=== PATIENT | female | born 1940 | race Caucasian/White ===

== ENCOUNTER 2017-04-10 10:03 | Emergency (ER) | payer MEDICARE ==
[2017-04-10 10:21] VITALS: BP 174/71
--- NOTE | 2017-04-10 11:17 | UC ---
Lower Extremity/Ankle HPI - HPI Summary HPI Summary: 2 DAYS OF WORSENING PAIN AND REDNESS LEFT GREAT TOE. REPORTS A H/O GOUT AND THIS FEELS THE SAME. DENIES ANY TRAUMA OR INJURY. STATES SHE GETS GOUTY ATTACKS EVERY 4-6 MONTHS. IS NOT ON DAILY PROPHYLACTIC TREATMENT. - History of Current Complaint Chief Complaint: UCLowerExtremity Stated Complaint: SWOLLEN FOOT AND TOE Time Seen by Provider: 04/10/17 10:26 Hx Obtained From: Patient Onset/Duration: Gradual Onset, Lasting Days, Still Present Severity Initially: Mild Severity Currently: Moderate Pain Intensity: 10 - 10/10 WHEN TOUCHED Pain Scale Used: 0-10 Numeric Aggravating Factor(s): Standing, Ambulation Alleviating Factor(s): Rest Able to Bear Weight: Yes - WITH PAIN - Allergies/Home Medications Allergies/Adverse Reactions: Allergies Allergy/AdvReac Type Severity Reaction Status Date / Time gluten Allergy Severe Diarrhea Verified 04/10/17 10:24 PMH/Surg Hx/FS Hx/Imm Hx - Additional Past Medical History Additional PMH: GOUT Endocrine History: Hypothyroidism Cardiovascular History: Hypertension Other GI/ History: CELIAC - Surgical History Surgical History: Yes Surgery Procedure, Year, and Place: [facility] 1996 - Family History Known Family History: Positive: Hypertension - Social History Alcohol Use: None Substance Use Type: None Smoking Status (MU): Never Smoked Tobacco Review of Systems Constitutional: Negative Skin: Other - ERYTHEMA Respiratory: Negative Cardiovascular: Negative Gastrointestinal: Negative Musculoskeletal: Arthralgia, Decreased ROM, Edema All Other Systems Reviewed And Are Negative: Yes Physical Exam Triage Information Reviewed: Yes Appearance: Well-Appearing, No Pain Distress, Well-Nourished Vital Signs: Initial Vital Signs Temp 97.7 F 04/10/17 10:14 Pulse 76 04/10/17 10:14 Resp 18 04/10/17 10:14 BP 174/71 04/10/17 10:14 Pulse Ox 99 04/10/17 10:14 Vital Signs Reviewed: Yes Eyes: Positive: Conjunctiva Clear ENT: Positive: Hearing grossly normal Neck: Positive: Supple Respiratory: Positive: No respiratory distress, No accessory muscle use Cardiovascular: Positive: Pulses Normal Abdomen Description: Positive: Soft Musculoskeletal: Positive: ROM Limited @ - LEFT GREAT TOE, Edema @ - LEFT GREAT TOE, Other: - LEFT GREAT TOE EXQUISITELY TTP MCP JOINT WIOTH ERYTHEMA AND EDEMA Neurological: Positive: Alert Psychological: Positive: Age Appropriate Behavior Skin: Negative: breakdown Lower Extremity Course/Dx - Course Course Of Treatment: DISCUSSED POSSIBLE CAUSES OF LEFT GREAT TOE PAIN AND SWELLING INCLUDING ARTHRITIS, INFECTION AND TRAUMA/FRACTURE. PT DECLINES XRAY TODAY. STATES SHE HAS GOUTY FLARES EVERY 4 MONTHS OR SO AND THIS FEELS THE SAME. DENIES ANY TRAUMA. HAS NEVER BEEN OFFICIALLY WORKED UP FOR GOUT AND IS NOT ON ANY PROPHYLACTIC TREATMENT. ADVISED TO SEE PCP FOR THIS ONCE SHE IS SX FREE. - Differential Dx/Diagnosis Provider Diagnoses: GOUT - LEFT GREAT TOE Discharge - Discharge Plan Condition: Stable Disposition: HOME Prescriptions: Indomethacin CAP* [Indocin CAP*] 50 mg PO TID #15 cap Patient Education Materials: Low Purine Diet (ED), Gout (ED) Referrals: Jose RANDOLPH,Hoang Clark [Primary Care Provider] - 2 Weeks Additional Instructions: YOUR SYMPTOMS ARE CERTAINLY CONSISTENT WITH GOUT. WILL TREAT WITH INDOMETHACIN 3 TIMES A DAY FOR 5 DAYS. NO OTC NSAIDS (IBUPROFEN.NAPROXEN) WHILE TAKING THIS MED. GIVEN THE FREQUENCY OF YOUR EPISODES I WOULD RECOMMEND A WORK-UP TO DEFINITIVELY DIAGNOSE THIS CONDITION. ONCE YOU HAVE BEEN SYMPTOM FREE FOR AT LEAST 2 WEEKS FOLLOW-UP WITH YOUR PCP TO DISCUSS EVALUATION FOR GOUT, AND IF INDICATED DAILY PROPHYLACTIC MEDICATION TO PREVENT RECURRENT FLARES. IF YOU FEEL THE BEGINNINGS OF A FLARE IN THE FUTURE YOU CAN TRY TO PREVENT IT BY TAKING OTC NSAIDS - ALEVE (NAPROXEN): 440MG (2 TABS) EVERY 12 HRS
== END 2017-04-10 11:28 | disposition home or self-care (01) ==
LOC: UCEAST 10:03
DX: M10.9 Gout, unspecified (principal); E03.9 Hypothyroidism, unspecified; I10 Essential (primary) hypertension; K90.0 Celiac disease
CPT/HCPCS: 99212; G0463

== ENCOUNTER 2017-06-24 09:58 | Emergency (ER) | payer MEDICARE ==
[2017-06-24] MEDS ORDERED: Indomethacin CAP* 25 MG CAP PO ONE (11:03)
--- NOTE | 2017-06-24 11:41 | RAD ---
INDICATION: Pain and erythema at the right great toe and distal foot COMPARISON: None. TECHNIQUE: 3 views of the right foot were obtained. FINDINGS: The adequately corticated bones are properly aligned. Joint spaces appear maintained. No fracture, dislocation or focal bony abnormality is seen. Calcification is noted overlying the distal right anterior tibial artery. IMPRESSION: 1. NO RADIOGRAPHIC EVIDENCE OF OSTEOMYELITIS. 2. CALCIFICATION IS NOTED OVERLYING THE DISTAL RIGHT ANTERIOR TIBIAL ARTERY. PLEASE CORRESPOND TO THE PATIENT'S VASCULAR EXAM. IF CLINICALLY WARRANTED FURTHER CHARACTERIZATION COULD BE MADE WITH ARTERIAL DUPLEX ULTRASOUND OR BERNADETTE. If the patient's symptoms persist, follow-up imaging is recommended.
--- NOTE | 2017-06-24 11:51 | UC ---
Lower Extremity/Ankle HPI - HPI Summary HPI Summary: RIGHT GREAT TOE PAIN, REDNESS AND SWELLING. HAS H/O GOUTY ATTACKS EVERY FEW MONTHS. SX CAN BE IN EITHER RIGHT OR LEFT GREAT TOES. WAS HERE 3 MONTHS AGO WITH SAME COMPLAINT IN LEFT GREAT TOE. SX RESOLVED WITH INDOCIN. FOLLOWED-UP WITH PCP AND PUT ON ULORIC BUT DEVELOPED ADVERSE REACTION AFTER 11 DAYS. STATES SHE IS ALSO ALLERGIC TO ALLOPURINOL. SHE DENIES ANY TRAUMA TO THE FOOT. ALSO HAD ONSET OF SHARP RLQ PAIN YESTERDAY. NO URINARY SX. NO FEVER, N/V/D. LAST BM YESTERDAY NORMAL. - History of Current Complaint Chief Complaint: UCLowerExtremity Stated Complaint: FOOT PAIN AND SIDE PAIN Time Seen by Provider: 06/24/17 10:34 Hx Obtained From: Patient Onset/Duration: Gradual Onset, Lasting Days, Still Present Severity Initially: Moderate Severity Currently: Moderate Pain Intensity: 5 Pain Scale Used: 0-10 Numeric Aggravating Factor(s): Standing, Ambulation Alleviating Factor(s): Rest Able to Bear Weight: Yes - Allergies/Home Medications Allergies/Adverse Reactions: Allergies Allergy/AdvReac Type Severity Reaction Status Date / Time gluten Allergy Severe Diarrhea Verified 06/24/17 10:11 PMH/Surg Hx/FS Hx/Imm Hx - Additional Past Medical History Additional PMH: CELIAC, GOUT Endocrine History: Hypothyroidism Cardiovascular History: Hypertension - Surgical History Surgical History: Yes Surgery Procedure, Year, and Place: [facility] - Family History Known Family History: Positive: Hypertension - Social History Alcohol Use: None Substance Use Type: None Smoking Status (MU): Never Smoked Tobacco Review of Systems Constitutional: Negative Skin: Other - ERYTHEMA RIGHT FOOT Respiratory: Negative Cardiovascular: Negative Gastrointestinal: Abdominal Pain Genitourinary: Negative Musculoskeletal: Arthralgia, Decreased ROM, Edema All Other Systems Reviewed And Are Negative: Yes Physical Exam Triage Information Reviewed: Yes Appearance: Well-Appearing, No Pain Distress, Well-Nourished Vital Signs: Initial Vital Signs Temp 98.8 F 06/24/17 10:07 Pulse 109 06/24/17 10:07 Resp 18 06/24/17 10:07 BP 154/83 06/24/17 10:07 Pulse Ox 97 06/24/17 10:07 Vital Signs Reviewed: Yes Eyes: Positive: Conjunctiva Clear ENT: Positive: Hearing grossly normal, Pharynx normal, TMs normal Neck: Positive: Supple Respiratory: Positive: No respiratory distress, No accessory muscle use Cardiovascular: Positive: Pulses Normal Abdomen Description: Positive: Soft, Other: - TTP DIFFUSELT. WORST RLQ. NO REBOUND OR RIGIDITY. Negative: CVA Tenderness (R), CVA Tenderness (L) Bowel Sounds: Positive: Present Musculoskeletal: Positive: ROM Limited @ - RIGHT GREAT TOE, Edema @ - RIGHT FOOT /RIGHT GREAT TOE, Other: - TTP RIGHT GREAT TOE/MTP JOINT Neurological: Positive: Alert Psychological: Positive: Age Appropriate Behavior Skin: Positive: Other - RIGHT DISTAL FOOT/GREAT TOE ERYTHEMA Diagnostics - Radiology RIGHT FOOT XRAY Xray Interpretation: No Acute Changes Radiology Interpretation Completed By: Radiologist CT ABD/PELVIS W/O CONTRAST Xray Interpretation: Positive (See Comments) - 1.There is mild perienteric inflammatory change at the terminal ileum most suspicious for acute diverticulitis of the ileum. Negative for perienteric abscess or resulting bowel obstruction. 2. The appendix is not discretely visualized limiting assessment. 3. Negative for obstructive uropathy. 4. Probable reactive subcentimeter RIGHT lower quadrant mesenteric lymph node. Radiology Interpretation Completed By: Radiologist Lower Extremity Course/Dx - Differential Dx/Diagnosis Provider Diagnoses: 1. ACUTE DIVERTICULITIS. 2. GOUT RIGHT GREAT TOE Discharge - Sign-Out/Discharge Documenting (check all that apply): Discharge/Admit/Transfer - Discharge Plan Condition: Stable Disposition: HOME Prescriptions: Ciprofloxacin TAB* [Cipro 500 MG TAB*] 500 mg PO BID #20 tab Indomethacin CAP* [Indocin CAP*] 50 mg PO TID #14 cap metroNIDAZOLE [Flagyl 500 MG TAB] 500 mg PO TID #30 tab Patient Education Materials: Diverticulitis (ED), Low Purine Diet (ED), Gout ( ED), Diverticulitis Diet (ED) Referrals: Jose RANDOLPH,Hoang Clark [Primary Care Provider] - If Needed Additional Instructions: CT SCAN SUGGESTIVE OF DIVERTICULITIS. WILL TREAT WITH METRONIDAZOLE AND CIPRO FOR 10 DAYS. WATCH DIET. KEEP PCP FOLLOW-UP APPOINTMENT IN 6 DAYS. GO TO THE ER WITHOUT FAIL IF SYMPTOMS WORSEN. FOOT X-RAY UNREMARKABLE FOR FRACTURE OR DISLOCATION. THERE IS SOME ARTERIAL CALCIFICATION. BE SURE TO FOLLOW THIS WITH YOUR PRIMARY CARE PROVIDER. WILL TREAT YOU TODAY FOR GOUT. STAY WELL HYDRATED. - Billing Disposition and Condition Condition: STABLE Disposition: HOME
--- NOTE | 2017-06-24 12:36 | RAD ---
INDICATION: RIGHT lower quadrant abdominal pain since last evening. Post cholecystectomy. COMPARISON: No relevant prior exams available on the [facility] PACS for comparison. TECHNIQUE: Multidetector CT images were obtained from the lung bases to the ischial tuberosities. Evaluation of the viscera is limited without IV contrast. Multiplanar reformation. REPORT: Cardiomegaly and mild subsegmental atelectasis as well as RIGHT basilar bronchiectasis at the visualized inferior thorax. Post cholecystectomy. Negative for biliary dilatation. No focal hepatic lesions evident. Partial fatty replacement of the pancreas. Unremarkable spleen. Negative for CT abnormality of the upper GI. There is mild perienteric inflammatory change at the terminal ileum most suspicious for acute diverticulitis of the ileum. The appendix is not discretely visualized limiting assessment. Negative for extra enteric gas or ascites. Severe diverticulosis of the colon without findings of colonic diverticulosis. Normal adrenal glands. Negative for urolithiasis or hydronephrosis. The kidneys are mildly atrophic. Unremarkable uterus and adnexal regions. 0.9 cm short axis RIGHT lower quadrant mesenteric lymph node. Normal diameter abdominal aorta and iliac arteries with mild calcific plaque. Partially decompressed inferior vena cava consistent with lower volume state. Negative for retroperitoneal hematoma. Dextroscoliosis of the lower thoracic and lumbar spine. 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 No acute fracture or suspicious focal osseous lesion evident. IMPRESSION: 1.There is mild perienteric inflammatory change at the terminal ileum most suspicious for acute diverticulitis of the ileum. Negative for perienteric abscess or resulting bowel obstruction. 2. The appendix is not discretely visualized limiting assessment. 3. Negative for obstructive uropathy. 4. Probable reactive subcentimeter RIGHT lower quadrant mesenteric lymph node.
[2017-06-24 12:43] VITALS: BP 170/100
== END 2017-06-24 13:07 | disposition home or self-care (01) ==
LOC: UCEAST 09:58
DX: M10.071 Idiopathic gout, right ankle and foot (principal); K57.10 Diverticulosis of small intestine without perforation or abscess without bleeding; E03.9 Hypothyroidism, unspecified; I10 Essential (primary) hypertension; Z90.49 Acquired absence of other specified parts of digestive tract
CPT/HCPCS: 74176; 81003; 99212; A9270-GY; G0463

== ENCOUNTER 2020-08-01 02:32 | Inpatient (IN) ==
[2020-08-01] MEDS ORDERED: NS 0.9% 1000 ml BAG 1,000 ML IV ONE ×2 (02:42→05:26)
[2020-08-01 03:30] LABS: ABS Eosinophils 0.1 10^3/ul (0-0.6); ABS Lymphocytes 1.6 10^3/ul (1.0-4.8); ABS Monocytes 0.9 10^3/ul (0-0.8); ABS Neutrophils 7.5 10^3/ul (1.5-7.7); Eosinophil % 0.8 %; Hematocrit 43 % (35-47); Hemoglobin 14.3 g/dL (12.0-16.0); Lymphocyte % 15.7 %; Mean Corpuscular HGB Conc 33 g/dL (31-36); Mean Corpuscular Hemoglobin 31 pg (27-31); Mean Corpuscular Volume 95 fL (80-97); Platelet Count 201 10^3/uL (150-450); Red Blood Count 4.57 10^6 /uL (3.70-4.87); Red Cell Distribution Width 15 % (10-15); White Blood Count 10.1 10^3/uL (3.5-10.8)
[2020-08-01 03:39] LABS: Albumin 3.8 g/dL (3.2-5.2); Calcium 8.8 mg/dL (8.6-10.3); Potassium 3.1 mmol/L (3.5-5.0); Total Bilirubin 0.5 mg/dL (0.2-1.0)
[2020-08-01 03:45] LABS: C Reactive Protein 88.32 mg/L (<8.01); EGFR African American 39.9 (>60); Globulin 3.8 g/dL (2-4); Total Protein 7.6 g/dL (6.4-8.9)
[2020-08-01] MEDS ORDERED: Iodixanol (CONTRAST) 320 MG/ML 100 ML SDV IV ONE (04:37)
[2020-08-01] MEDS ORDERED: Piperacillin/Tazobac ADVAN 3.375 GM in NS 0.9% 100 ml BAG 100 ML IV ONE ×2 (06:16→07:53)
[2020-08-01] MEDS ORDERED: Piperacillin/Tazobac 3.375 GM BAG ONE (06:24)
[2020-08-01] MEDS: KCL 20 MEQ/100 ML IVPREMIX 20 MEQ/100 ML BAG IV SCH ×2 (07:14→12:38)
[2020-08-01] MEDS ORDERED: Magnesium Hydroxide LIQ 30 ML UDC PO PRN (07:45)
[2020-08-01] MEDS ORDERED: Al Hydrox/Mg Hydrox/Simet LIQ 30 ML UDC PO PRN (07:45)
[2020-08-01] MEDS ORDERED: NS 0.9% 1000 ml BAG 1,000 ML IV SCH (07:45)
[2020-08-01] MEDS ORDERED: Zosyn per Pharmacy NOTE FOLLOW UP SCH (08:00)
[2020-08-01] MEDS ORDERED: Cyanocobalamin INJ 1,000 MCG/ML VIAL 1 ML VIAL IM ONE (08:47)
[2020-08-01] MEDS: Nystatin TOP POWDER 15 GM BTL TOPICAL SCH ×3 (11:09→21:55)
[2020-08-01] MEDS ORDERED: Morphine 2 MG/ML SYRINGE IV PRN (12:02)
[2020-08-01] MEDS ORDERED: ZOSYN 3.375 GM IV (13:30)
[2020-08-01] MEDS ORDERED: X ONE IV (13:30)
[2020-08-01] MEDS: Heparin 5000 UNITS/ML 1 mL VIAL SUBCUT SCH ×2 (15:10→21:55)
[2020-08-02] MEDS: ZOSYN 3.375 GM Q8H per EXTENDED INFUSION IV SCH ×4 (00:17→23:07)
[2020-08-02] MEDS: Heparin 5000 UNITS/ML 1 mL VIAL SUBCUT SCH ×3 (05:14→20:15)
[2020-08-02 05:53] LABS: ABS Eosinophils 0.2 10^3/ul (0-0.6); ABS Lymphocytes 1.4 10^3/ul (1.0-4.8); ABS Monocytes 0.4 10^3/ul (0-0.8); ABS Neutrophils 3.3 10^3/ul (1.5-7.7); Eosinophil % 3.2 %; Hematocrit 36 % (35-47); Hemoglobin 11.8 g/dL (12.0-16.0); Lymphocyte % 26.1 %; Mean Corpuscular HGB Conc 33 g/dL (31-36); Mean Corpuscular Hemoglobin 31 pg (27-31); Mean Corpuscular Volume 95 fL (80-97); Mean Platelet Volume 10.6 fL (7.4-10.4); Platelet Count 172 10^3/uL (150-450); Red Blood Count 3.82 10^6 /uL (3.70-4.87); Red Cell Distribution Width 15 % (10-15); White Blood Count 5.3 10^3/uL (3.5-10.8)
[2020-08-02 06:08] LABS: C Reactive Protein 70.03 mg/L (<8.01)
[2020-08-02] MEDS: Nystatin TOP POWDER 15 GM BTL TOPICAL SCH ×3 (07:40→20:15)
[2020-08-02 08:43] LABS: Calcium 7.3 mg/dL (8.6-10.3); EGFR African American 83.1 (>60); EGFR Non-African American 68.7 (>60); Potassium 3.2 mmol/L (3.5-5.0)
[2020-08-02] MEDS ORDERED: Potassium Chlor 20 meq TAB.ER PO SCH (09:00)
[2020-08-02 09:21] LABS: Magnesium 1.2 mg/dL (1.9-2.7)
[2020-08-02] MEDS ORDERED: Magnesium Sulf 4 GM/100 ML IV 4,000 MG/100 ML BAG IVPB ONE (10:00)
[2020-08-02] MEDS: Potassium Chloride LIQUID 20 MEQ/15 ML LIQUID PO SCH ×2 (11:35→12:59)
[2020-08-03] MEDS: Heparin 5000 UNITS/ML 1 mL VIAL SUBCUT SCH (06:33)
[2020-08-03 07:20] LABS: ABS Eosinophils 0.3 10^3/ul (0-0.6); ABS Lymphocytes 1.1 10^3/ul (1.0-4.8); ABS Monocytes 0.5 10^3/ul (0-0.8); ABS Neutrophils 3.8 10^3/ul (1.5-7.7); Eosinophil % 5.6 %; Hematocrit 34 % (35-47); Hemoglobin 11.4 g/dL (12.0-16.0); Lymphocyte % 19.6 %; Mean Corpuscular HGB Conc 34 g/dL (31-36); Mean Corpuscular Hemoglobin 32 pg (27-31); Mean Corpuscular Volume 94 fL (80-97); Nucleated Red Blood Cells % 0.1; Platelet Count 180 10^3/uL (150-450); Red Blood Count 3.58 10^6 /uL (3.70-4.87); Red Cell Distribution Width 14 % (10-15); White Blood Count 5.8 10^3/uL (3.5-10.8)
[2020-08-03 07:32] LABS: Magnesium 1.7 mg/dL (1.9-2.7); Potassium 3.9 mmol/L (3.5-5.0)
[2020-08-03 07:37] LABS: C Reactive Protein 64.07 mg/L (<8.01); EGFR Non-African American 84.3 (>60)
[2020-08-03] MEDS ORDERED: Magnesium Sulfate 2 gm BAG 2 GM/50 ML BAG IVPB ONE (08:40)
[2020-08-03 08:41] VITALS: BP 141/56
[2020-08-03] MEDS: ZOSYN 3.375 GM Q8H per EXTENDED INFUSION IV SCH ×2 (08:54→09:05)
[2020-08-03] MEDS: Nystatin TOP POWDER 15 GM BTL TOPICAL SCH (10:57)
== END 2020-08-03 11:50 | disposition home or self-care (01) | DRG 394 ==
LOC: ED 02:32 → MED 17:34
PROVIDERS: ADMIT Internal Medicine; ATTEND Internal Medicine

== ENCOUNTER 2023-09-03 16:35 | Inpatient (IN) ==
[2023-09-03] MEDS: Ondansetron 4 mg VIAL 2 MG/ML 2 ml VIAL IV ONE (18:04)
[2023-09-03] MEDS: Morphine 4 MG/ML VIAL (1 ml) IV ONE (18:08)
[2023-09-03 18:23] LABS: ABS Lymphocytes 1.3 10^3/uL (1.0-4.8); ABS Monocytes 0.6 10^3/uL (0.0-0.9); ABS Neutrophils 8.8 10^3/uL (1.5-7.6); Eosinophil % 0.2 %; Hematocrit 37.6 % (35-45); Hemoglobin 12.5 g/dL (11.5-14.3); Lymphocyte % 12.3 %; Mean Corpuscular Hemoglobin 31.4 pg (27-33); Mean Corpuscular Hgb Conc 33.3 g/dL (31-36); Mean Corpuscular Volume 94.2 fL (80-97); Mean Platelet Volume 10.6 fL (7.5-11.2); Platelet Count 169 10^3/uL (150-450); Red Blood Count 3.99 10^6/uL (3.63-4.92); White Blood Count 10.8 10^3/uL (3.8-11.8)
[2023-09-03] MEDS: Lactated Ringers 1000 ml BAG 1,000 ML IV ONE (18:28)
[2023-09-03 19:08] LABS: Albumin 4.3 g/dL (3.2-5.2); Albumin/Globulin Ratio 1.2 (1-3); Calcium 9.5 mg/dL (8.6-10.3); Creatinine, Serum 0.77 mg/dL (0.51-0.95); Globulin 3.6 g/dL (2-4); Potassium 4.4 mmol/L (3.5-5.0); Total Bilirubin 0.5 mg/dL (0.2-1.0); Total Protein 7.9 g/dL (6.4-8.9); eGFR CKD-EPI 75.5 (>60)
[2023-09-03] MEDS: Morphine 4 MG/ML VIAL (1 ml) IV PRN (19:42)
[2023-09-03] MEDS ORDERED: Ondansetron 4 mg VIAL 2 MG/ML 2 ml VIAL IV PRN (21:49)
[2023-09-03] MEDS: Heparin 5000 UNITS/ML 1 mL VIAL SUBCUT SCH (22:16)
[2023-09-04] MEDS: Morphine 2 MG/ML SYRINGE IV PRN (03:48)
[2023-09-04 06:36] LABS: Hematocrit 34.8 % (35-45); Hemoglobin 11.4 g/dL (11.5-14.3); Mean Corpuscular Hemoglobin 30.7 pg (27-33); Mean Corpuscular Hgb Conc 32.6 g/dL (31-36); Mean Corpuscular Volume 94.2 fL (80-97); Mean Platelet Volume 10.6 fL (7.5-11.2); Platelet Count 150 10^3/uL (150-450); Red Cell Distribution Width 14.9 % (12-17); White Blood Count 8.6 10^3/uL (3.8-11.8)
[2023-09-04 06:45] LABS: INR 0.95 (0.83-1.13)
[2023-09-04] MEDS: Sulfur Hexaflouride MICROSPHR 25 MG VIAL IV ONE (09:03)
[2023-09-05] MEDS ORDERED: Propofol 10 MG/ML 20 ML BTL ONE (07:34)
[2023-09-05] MEDS ORDERED: Lidocaine 2% PF 5 ML VIAL ONE (07:34)
[2023-09-05] MEDS ORDERED: fentaNYL 100 mcg/2 ml 50 MCG/ML VIAL ONE ×2 (07:34→11:39)
[2023-09-05] MEDS ORDERED: Rocuronium 50 mg VIAL 10 mg/ml 5 ml VIAL (50 mg) ONE (07:35)
[2023-09-05] MEDS ORDERED: Vancomycin 1,000 MG VIAL ONE (07:44)
[2023-09-05] MEDS ORDERED: fentaNYL 100 mcg/2 ml 50 MCG/ML VIAL IV PRN (08:48)
[2023-09-05] MEDS ORDERED: Naloxone 0.4 mg VIAL 0.4 mg/ml 1 ml VIAL IV PRN (08:48)
[2023-09-05] MEDS ORDERED: HYDROmorphone 1 MG/1 ML SYRINGE IV PRN (08:48)
[2023-09-05] MEDS ORDERED: Ondansetron 4 mg VIAL 2 MG/ML 2 ml VIAL IV PRN (08:48)
[2023-09-05] MEDS ORDERED: ceFAZolin 2 GM PREMIX 2 GM/50 ML BAG ONE (08:50)
[2023-09-05] MEDS ORDERED: Phenylephrine IV 10 MG/ML 1 ml VIAL ONE (10:05)
[2023-09-05] MEDS ORDERED: Dexamethasone IV 4 MG/ML VIAL 1 ml VIAL ONE (10:17)
[2023-09-05] MEDS ORDERED: Ondansetron 4 mg VIAL 2 MG/ML 2 ml VIAL ONE (10:29)
[2023-09-05] MEDS ORDERED: Acetaminophen IV 1 GM/100ML 1,000 MG/100 ML BAG IV ONE (10:33)
[2023-09-05] MEDS ORDERED: Magnesium Hydroxide LIQ 30 ML UDC PO PRN (12:55)
[2023-09-05] MEDS ORDERED: Polyethylene Glycol 3350 17 GM PACKET PO PRN (12:55)
[2023-09-05] MEDS ORDERED: Senna TAB 8.6 mg TAB PO PRN (12:55)
[2023-09-05] MEDS: Metoclopramide 5 MG/ML VIAL (10 mg) IV SLOW PU ONE (12:57)
[2023-09-05] MEDS: Lactated Ringers 1000 ml BAG 1,000 ML IV ONE (15:24)
[2023-09-05] MEDS: ceFAZolin 1 GM ADVAN 1 GM in NS 0.9% 50 ML 50 ML IVPB SCH (17:11)
[2023-09-05] MEDS: Magnesium Hydroxide LIQ 30 ML UDC PO SCH (21:32)
[2023-09-06 06:14] LABS: ABS Lymphocytes 0.7 10^3/uL (1.0-4.8); ABS Neutrophils 8.4 10^3/uL (1.5-7.6); ABS Nucleated RBC 0.01 10^3/ul; Hematocrit 30.3 % (35-45); Hemoglobin 10.2 g/dL (11.5-14.3); Lymphocyte % 6.8 %; Mean Corpuscular Hemoglobin 31.4 pg (27-33); Mean Corpuscular Hgb Conc 33.5 g/dL (31-36); Mean Corpuscular Volume 93.8 fL (80-97); Mean Platelet Volume 10.6 fL (7.5-11.2); Nucleated Red Blood Cells % 0.1 %/100WBC (0.0-0.8); Platelet Count 122 10^3/uL (150-450); Red Blood Count 3.23 10^6/uL (3.63-4.92); Red Cell Distribution Width 14.7 % (12-17); White Blood Count 10.1 10^3/uL (3.8-11.8)
[2023-09-06 06:28] LABS: Albumin 3.3 g/dL (3.2-5.2); Albumin/Globulin Ratio 1.3 (1-3); Calcium 7.8 mg/dL (8.6-10.3); Creatinine, Serum 0.77 mg/dL (0.51-0.95); Globulin 2.6 g/dL (2-4); Magnesium 2.6 mg/dL (1.9-2.7); Total Bilirubin 0.3 mg/dL (0.2-1.0); Total Protein 5.9 g/dL (6.4-8.9); eGFR CKD-EPI 75.5 (>60)
[2023-09-06] MEDS: Enoxaparin 40 MG/0.4 ML SYR SUBCUT SCH (12:06)
[2023-09-07 06:36] LABS: Hematocrit 31.4 % (35-45); Hemoglobin 10.4 g/dL (11.5-14.3); Mean Platelet Volume 11.6 fL (7.5-11.2); Platelet Count 137 10^3/uL (150-450)
[2023-09-07 06:53] LABS: Albumin 3.3 g/dL (3.2-5.2); Albumin/Globulin Ratio 1.1 (1-3); Creatinine, Serum 0.66 mg/dL (0.51-0.95); Globulin 3.1 g/dL (2-4); Potassium 5.1 mmol/L (3.5-5.0); Total Bilirubin 0.4 mg/dL (0.2-1.0); Total Protein 6.4 g/dL (6.4-8.9); eGFR CKD-EPI 85.9 (>60)
[2023-09-07] MEDS: Furosemide 20 mg/2 ml IV VIAL IV ONE (12:21)
[2023-09-07 14:42] VITALS: BP 101/42
== END 2023-09-07 15:25 | DRG 522 ==
LOC: ED 16:35 → SUATTDRO 21:49 → EDHOLD 21:49 → SSU 23:24 → UNDODISIN 09-07 14:09 → PMRU 09-07 14:40
PROVIDERS: ADMIT Hospitalist; ATTEND Hospitalist

== ENCOUNTER 2023-09-07 14:20 | Inpatient (IN) ==
[2023-09-07] MEDS ORDERED: Senna TAB 8.6 mg TAB PO PRN (14:40)
[2023-09-08 06:33] LABS: ABS Eosinophils 0.4 10^3/uL (0.0-0.5); ABS Lymphocytes 1.4 10^3/uL (1.0-4.8); ABS Monocytes 0.8 10^3/uL (0.0-0.9); ABS Neutrophils 4.8 10^3/uL (1.5-7.6); ABS Nucleated RBC 0.01 10^3/ul; Eosinophil % 5.5 %; Hematocrit 28.6 % (35-45); Hemoglobin 9.6 g/dL (11.5-14.3); Mean Corpuscular Hemoglobin 31.5 pg (27-33); Mean Corpuscular Hgb Conc 33.4 g/dL (31-36); Mean Corpuscular Volume 94.2 fL (80-97); Mean Platelet Volume 11.2 fL (7.5-11.2); Nucleated Red Blood Cells % 0.1 %/100WBC (0.0-0.8); Platelet Count 164 10^3/uL (150-450); Red Blood Count 3.03 10^6/uL (3.63-4.92); Red Cell Distribution Width 15.1 % (12-17); White Blood Count 7.4 10^3/uL (3.8-11.8)
[2023-09-08 07:30] LABS: Albumin/Globulin Ratio 1.1 (1-3); Calcium 7.6 mg/dL (8.6-10.3); Creatinine, Serum 0.69 mg/dL (0.51-0.95); Globulin 2.8 g/dL (2-4); Potassium 5.2 mmol/L (3.5-5.0); Total Bilirubin 0.5 mg/dL (0.2-1.0); Total Protein 5.8 g/dL (6.4-8.9)
[2023-09-08 09:27] LABS: Magnesium 2.7 mg/dL (1.9-2.7)
[2023-09-08] MEDS: Ondansetron ODT 4 mg TAB 4 MG TAB SL PRN (09:31)
[2023-09-08] MEDS: Lidocaine PATCH 5% PATCH TRANSDERM SCH (13:19)
[2023-09-08] MEDS: Cholecalciferol (VIT D3) 1,000 unit TAB PO SCH (13:20)
[2023-09-08] MEDS: Enoxaparin 40 MG/0.4 ML SYR SUBCUT SCH (13:23)
[2023-09-09 07:12] LABS: Hematocrit 28.9 % (35-45); Hemoglobin 9.7 g/dL (11.5-14.3); Mean Corpuscular Hemoglobin 31.4 pg (27-33); Mean Corpuscular Hgb Conc 33.5 g/dL (31-36); Mean Corpuscular Volume 93.7 fL (80-97); Mean Platelet Volume 11.2 fL (7.5-11.2); Platelet Count 188 10^3/uL (150-450); Red Blood Count 3.08 10^6/uL (3.63-4.92); Red Cell Distribution Width 15.1 % (12-17); White Blood Count 6.3 10^3/uL (3.8-11.8)
[2023-09-09 07:31] LABS: Albumin/Globulin Ratio 1.1 (1-3); Calcium 7.5 mg/dL (8.6-10.3); Creatinine, Serum 0.67 mg/dL (0.51-0.95); Globulin 2.7 g/dL (2-4); Potassium 4.9 mmol/L (3.5-5.0); Total Bilirubin 0.6 mg/dL (0.2-1.0); Total Protein 5.7 g/dL (6.4-8.9); eGFR CKD-EPI 85.6 (>60)
[2023-09-09 08:10] LABS: ABS Basophils 0.1 10^3/uL (0.0-0.1); ABS Eosinophils 0.3 10^3/uL (0.0-0.5); ABS Lymphocytes 1.9 10^3/uL (1.0-4.8); ABS Monocytes 0.7 10^3/uL (0.0-0.9); ABS Neutrophils 3.4 10^3/uL (1.5-7.6); ABS Nucleated RBC 0.04 10^3/ul; Eosinophil % 4.5 %; Lymphocyte % 29.3 %; Nucleated Red Blood Cells % 0.6 %/100WBC (0.0-0.8)
[2023-09-09] MEDS: Calcium Carb (TUMS) 500 mg CHEW TAB PO SCH (08:57)
[2023-09-09] MEDS: Cyanocobalamin INJ 1,000 MCG/ML VIAL 1 ML VIAL IM ONE (18:23)
[2023-09-11 08:20] LABS: Hemoglobin 10.6 g/dL (11.5-14.3); Mean Corpuscular Hemoglobin 31.4 pg (27-33); Mean Corpuscular Hgb Conc 33.2 g/dL (31-36); Mean Corpuscular Volume 94.6 fL (80-97); Mean Platelet Volume 10.3 fL (7.5-11.2); Platelet Count 263 10^3/uL (150-450); Red Blood Count 3.38 10^6/uL (3.63-4.92); Red Cell Distribution Width 14.7 % (12-17); White Blood Count 6.4 10^3/uL (3.8-11.8)
[2023-09-11 08:56] LABS: ABS Basophils 0.1 10^3/uL (0.0-0.1); ABS Eosinophils 0.3 10^3/uL (0.0-0.5); ABS Lymphocytes 1.4 10^3/uL (1.0-4.8); ABS Monocytes 0.9 10^3/uL (0.0-0.9); ABS Neutrophils 3.6 10^3/uL (1.5-7.6); ABS Nucleated RBC 0.04 10^3/ul; Eosinophil % 5.3 %; Lymphocyte % 22.5 %; Nucleated Red Blood Cells % 0.6 %/100WBC (0.0-0.8)
[2023-09-11 09:30] LABS: Albumin 3.3 g/dL (3.2-5.2); Albumin/Globulin Ratio 1.1 (1-3); Calcium 8.4 mg/dL (8.6-10.3); Creatinine, Serum 0.69 mg/dL (0.51-0.95); Magnesium 2.2 mg/dL (1.9-2.7); Potassium 4.9 mmol/L (3.5-5.0); Total Bilirubin 0.7 mg/dL (0.2-1.0); Total Protein 6.3 g/dL (6.4-8.9)
[2023-09-13] MEDS: Polyethylene Glycol 3350 17 GM PACKET PO PRN (13:14)
[2023-09-13] MEDS: Magnesium Hydroxide LIQ 30 ML UDC PO PRN (17:42)
[2023-09-16 07:18] LABS: Albumin 3.4 g/dL (3.2-5.2); Albumin/Globulin Ratio 1.3 (1-3); Calcium 8.4 mg/dL (8.6-10.3); Creatinine, Serum 0.71 mg/dL (0.51-0.95); Globulin 2.7 g/dL (2-4); Potassium 4.5 mmol/L (3.5-5.0); Total Bilirubin 0.5 mg/dL (0.2-1.0); Total Protein 6.1 g/dL (6.4-8.9); eGFR CKD-EPI 83.3 (>60)
[2023-09-16 07:53] LABS: ABS Basophils 0.1 10^3/uL (0.0-0.1); ABS Eosinophils 0.2 10^3/uL (0.0-0.5); ABS Lymphocytes 1.7 10^3/uL (1.0-4.8); ABS Monocytes 0.5 10^3/uL (0.0-0.9); ABS Neutrophils 2.7 10^3/uL (1.5-7.6); ABS Nucleated RBC 0.02 10^3/ul; Eosinophil % 4.2 %; Hematocrit 43.5 % (35-45); Hemoglobin 14.2 g/dL (11.5-14.3); Lymphocyte % 32.9 %; Mean Corpuscular Hemoglobin 31.2 pg (27-33); Mean Corpuscular Hgb Conc 32.6 g/dL (31-36); Mean Corpuscular Volume 95.9 fL (80-97); Mean Platelet Volume 9.1 fL (7.5-11.2); Nucleated Red Blood Cells % 0.4 %/100WBC (0.0-0.8); Platelet Count 289 10^3/uL (150-450); Red Blood Count 4.53 10^6/uL (3.63-4.92); White Blood Count 5.2 10^3/uL (3.8-11.8)
[2023-09-17] MEDS: Enoxaparin 40 MG/0.4 ML SYR SUBCUT SCH (13:31)
[2023-09-18 07:06] VITALS: BP 106/40
== END 2023-09-18 14:42 | disposition home or self-care (01) | DRG 536 ==
LOC: PMRU 16:01
PROVIDERS: ADMIT Physical Medicine & Rehabilitation; ATTEND Physical Medicine & Rehabilitation

== ENCOUNTER 2023-11-21 18:25 | Observation (INO) ==
[2023-11-21 20:39] LABS: ABS Basophils 0.1 10^3/uL (0.0-0.1); ABS Eosinophils 0.3 10^3/uL (0.0-0.5); ABS Lymphocytes 1.2 10^3/uL (1.0-4.8); ABS Monocytes 0.8 10^3/uL (0.0-0.9); ABS Neutrophils 4.1 10^3/uL (1.5-7.6); ABS Nucleated RBC 0.02 10^3/ul; Eosinophil % 5.3 %; Hematocrit 39.1 % (35-45); Hemoglobin 12.6 g/dL (11.5-14.3); Lymphocyte % 17.9 %; Mean Corpuscular Hemoglobin 29.8 pg (27-33); Mean Corpuscular Hgb Conc 32.4 g/dL (31-36); Mean Platelet Volume 9.8 fL (7.5-11.2); Nucleated Red Blood Cells % 0.3 %/100WBC (0.0-0.8); Platelet Count 290 10^3/uL (150-450); Red Blood Count 4.25 10^6/uL (3.63-4.92); Red Cell Distribution Width 14.9 % (12-17); White Blood Count 6.5 10^3/uL (3.8-11.8)
[2023-11-21 20:56] LABS: ALT 13 U/L (7-52); Albumin 3.7 g/dL (3.2-5.2); Alkaline Phosphatase 90 U/L (35-149); Anion Gap 9 mmol/L (2-16); Blood Urea Nitrogen 16 mg/dL (6-24); C Reactive Protein 40.64 mg/L (<8.01); CO2 Carbon Dioxide 29 mmol/L (22-32); Calcium 9.1 mg/dL (8.6-10.3); Chloride 93 mmol/L (101-111); Creatinine, Serum 0.61 mg/dL (0.51-0.95); Globulin 3.8 g/dL (2-4); Glucose 124 mg/dL (70-100); Sodium 131 mmol/L (135-145); Total Bilirubin 0.4 mg/dL (0.2-1.0); Total Protein 7.5 g/dL (6.4-8.9); eGFR CKD-EPI 87.6 (>60)
[2023-11-22] MEDS: Furosemide 40 mg/4 ml IV VIAL IV SLOW PU ONE ×2 (00:37→10:45)
[2023-11-22 00:54] LABS: High Sensitivity Troponin 1 Hr 26 pg/mL (<15)
[2023-11-22 04:46] LABS: High Sensitivity Troponin 3 Hr 22 pg/mL (<15)
[2023-11-22] MEDS ORDERED: Ondansetron 4 mg VIAL 2 MG/ML 2 ml VIAL IV PRN (07:25)
[2023-11-22] MEDS: Iodixanol (CONTRAST) 320 MG/ML 100 ML SDV IV ONE (07:45)
[2023-11-22] MEDS: Enoxaparin 40 MG/0.4 ML SYR SUBCUT SCH (08:23)
[2023-11-22] MEDS ORDERED: Cyanocobalamin INJ 1,000 MCG/ML VIAL 1 ML VIAL IM SCH (09:00)
[2023-11-22] MEDS: Empagliflozin 25 MG TAB PO SCH (10:43)
[2023-11-22] MEDS: Cholecalciferol (VIT D3) 1,000 unit TAB PO SCH (10:43)
[2023-11-23 07:37] LABS: ABS Eosinophils 0.4 10^3/uL (0.0-0.5); ABS Lymphocytes 0.8 10^3/uL (1.0-4.8); ABS Monocytes 0.3 10^3/uL (0.0-0.9); ABS Neutrophils 2.5 10^3/uL (1.5-7.6); ABS Nucleated RBC 0.01 10^3/ul; Eosinophil % 10.9 %; Hemoglobin 11.5 g/dL (11.5-14.3); Lymphocyte % 20.2 %; Mean Corpuscular Hemoglobin 30.3 pg (27-33); Mean Corpuscular Hgb Conc 31.9 g/dL (31-36); Mean Corpuscular Volume 95.1 fL (80-97); Mean Platelet Volume 9.5 fL (7.5-11.2); Nucleated Red Blood Cells % 0.2 %/100WBC (0.0-0.8); Platelet Count 264 10^3/uL (150-450); Red Blood Count 3.78 10^6/uL (3.63-4.92); Red Cell Distribution Width 15.7 % (12-17); White Blood Count 4.1 10^3/uL (3.8-11.8)
[2023-11-23 07:38] LABS: Anion Gap 15 mmol/L (2-16); Blood Urea Nitrogen 20 mg/dL (6-24); CO2 Carbon Dioxide 27 mmol/L (22-32); Calcium 8.3 mg/dL (8.6-10.3); Chloride 91 mmol/L (101-111); Creatinine, Serum 0.95 mg/dL (0.51-0.95); Glucose 120 mg/dL (70-100); Magnesium 1.5 mg/dL (1.9-2.7); Sodium 133 mmol/L (135-145); eGFR CKD-EPI 58.7 (>60)
[2023-11-23 07:40] LABS: Potassium, Whole Blood 4.7 mmol/L (3.4-4.5)
[2023-11-23] MEDS: Amoxicillin/Clavul 875/125 TAB (Augmentin 875 tab) PO SCH (13:35)
[2023-11-23] MEDS: Amoxicillin/Clavul ORALSYR 80 MG/ML (400 MG/5 ML) PO SCH (20:30)
[2023-11-24 05:46] LABS: ABS Lymphocytes 0.8 10^3/uL (1.0-4.8); ABS Monocytes 0.5 10^3/uL (0.0-0.9); ABS Neutrophils 3.3 10^3/uL (1.5-7.6); Eosinophil % 17.1 %; Hematocrit 34.8 % (35-45); Hemoglobin 11.5 g/dL (11.5-14.3); Lymphocyte % 13.7 %; Mean Platelet Volume 9.1 fL (7.5-11.2); Nucleated Red Blood Cells % 0.1 %/100WBC (0.0-0.8); Platelet Count 301 10^3/uL (150-450); Red Blood Count 3.82 10^6/uL (3.63-4.92); Red Cell Distribution Width 14.9 % (12-17); White Blood Count 5.6 10^3/uL (3.8-11.8)
[2023-11-24 06:22] LABS: Anion Gap 9 mmol/L (2-16); Blood Urea Nitrogen 27 mg/dL (6-24); CO2 Carbon Dioxide 35 mmol/L (22-32); Calcium 8.5 mg/dL (8.6-10.3); Chloride 89 mmol/L (101-111); Creatinine, Serum 0.95 mg/dL (0.51-0.95); Glucose 118 mg/dL (70-100); Sodium 133 mmol/L (135-145); eGFR CKD-EPI 58.7 (>60)
[2023-11-24] MEDS: Potassium Chloride LIQUID 20 MEQ/15 ML LIQUID PO ONE (09:23)
[2023-11-24 10:06] VITALS: BP 101/58
== END 2023-11-24 14:00 | disposition home or self-care (01) ==
LOC: EDHOLD 18:25 → ED 18:25 → SUATTDRO 11-22 07:25 → MEDTELE 11-22 08:08
PROVIDERS: ADMIT Student in an Organized Health Care Education/Training Program; ATTEND Hospitalist